=== PATIENT | female | born 1985 ===

== ENCOUNTER 2018-10-27 06:28 | Emergency (ER) | payer MEDICAID, OTHER ==
[2018-10-27 08:46] VITALS: TEMP 99
--- NOTE | 2018-10-27 08:47 | C.PDOC ---
History Of Present Illness 33 years old female presents to ED for complaints of cold symptoms associated with cough and chest congestion that began 3 days ago. Denies nausea, vomiting, diarrhea, fever, back pain, shortness of breath, pr any other complaints. Denies allergies to medication. Time Seen by Provider: 10/27/18 07:24 Chief Complaint (Nursing): Cough, Cold, Congestion History Per: Patient History/Exam Limitations: no limitations Onset/Duration Of Symptoms: Days (3) Current Symptoms Are (Timing): Still Present Recent travel outside of the [place]: No Past Medical History Reviewed: Historical Data, Nursing Documentation, Vital Signs Vital Signs: Last Vital Signs Temp 99.0 F 10/27/18 08:45 Pulse 105 H 10/27/18 08:45 Resp 17 10/27/18 08:45 BP 164/117 H 10/27/18 08:45 Pulse Ox 98 10/27/18 08:45 - Medical History PMH: HTN Surgical History: No Surg Hx Family History: States: No Known Family Hx - Social History Hx Alcohol Use: Yes Hx Substance Use: No Review Of Systems Except As Marked, All Systems Reviewed And Found Negative. Constitutional: Negative for: Fever, Chills ENT: Positive for: Other (cold symptoms ) Cardiovascular: Positive for: Other (chest congestion ). Negative for: Chest Pain Respiratory: Positive for: Cough. Negative for: Shortness of Breath Gastrointestinal: Negative for: Nausea, Vomiting, Abdominal Pain, Diarrhea Musculoskeletal: Negative for: Back Pain Skin: Negative for: Rash Neurological: Negative for: Weakness, Numbness Physical Exam - Physical Exam Appears: Non-toxic, No Acute Distress Skin: Normal Color, Warm, Dry, No Rash Head: Atraumatic, Normacephalic Eye(s): bilateral: Normal Inspection, PERRL, EOMI Oral Mucosa: Moist Throat: Normal, No Erythema, No Exudate, No Drooling, No Mass Neck: Normal ROM, Supple Chest: Symmetrical, No Tenderness Cardiovascular: Rhythm Regular, No Murmur Respiratory: No Rales, Rhonchi (scattered ), No Wheezing Gastrointestinal/Abdominal: Normal Exam, Bowel Sounds (Active ), Soft, No Tenderness Extremity: Normal ROM Extremity: Bilateral: Atraumatic, Normal Color And Temperature, Normal ROM Pulses: Left Radial: Normal, Right Radial: Normal Neurological/Psych: Oriented x3, Normal Speech, Other (No focal deficits ) Gait: Steady ED Course And Treatment O2 Sat by Pulse Oximetry: 98 (RA) Pulse Ox Interpretation: Normal - Other Rad CXR X-Ray: Interpreted by Me, Viewed By Me Interpretation: Date of service: 10/27/2018. HISTORY: COUGH, PLEURITIC PAIN. COMPARISON: No prior. TECHNIQUE: Chest PA and lateral. FINDINGS: LUNGS: No active pulmonary disease. PLEURA: No significant pleural effusion identified. No pneumothorax apparent. CARDIOVASCULAR: No aortic atherosclerotic calcification present. Normal cardiac size. No pulmonary vascular congestion. OSSEOUS STRUCTURES: No significant abnormalities. VISUALIZED UPPER ABDOMEN: Normal. OTHER FINDINGS: None. IMPRESSION: No acute cardiopulmonary disease appreciated. Medical Decision Making Medical Decision Making: Plan: * Prednisone * Motrin * CXR Disposition - Disposition Referrals: Miller Cespedes MD [Staff Provider] - Disposition: HOME/ ROUTINE Disposition Time: 09:54 Condition: GOOD Additional Instructions: Must see PMD for blood pressure recheck Follow up with the medical doctor within 1-2 days. Return if worsened. 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 - Scribe Statement The provider has reviewed the documentation as recorded by the Scribe Sameer Mckee All medical record entries made by the Scribe were at my direction and personally dictated by me. I have reviewed the chart and agree that the record accurately reflects my personal performance of the history, physical exam, medical decision making, and the department course for this patient. I have also personally directed, reviewed, and agree with the discharge instructions and disposition.
--- NOTE | 2018-10-27 09:02 | RAD ---
Date of service: 10/27/2018 HISTORY: COUGH, PLEURITIC PAIN COMPARISON: No prior. TECHNIQUE: Chest PA and lateral FINDINGS: LUNGS: No active pulmonary disease. PLEURA: No significant pleural effusion identified. No pneumothorax apparent. CARDIOVASCULAR: No aortic atherosclerotic calcification present. Normal cardiac size. No pulmonary vascular congestion. OSSEOUS STRUCTURES: No significant abnormalities. VISUALIZED UPPER ABDOMEN: Normal. OTHER FINDINGS: None. IMPRESSION: No acute cardiopulmonary disease appreciated.
[2018-10-27 10:20] VITALS: BP 130/88; PULSE 89; RESP 18; O2SAT 95
== END 2018-10-27 10:20 | disposition home or self-care (01) ==
LOC: C.ER 06:28
DX: J40 Bronchitis, not specified as acute or chronic (principal); I10 Essential (primary) hypertension